=== PATIENT | female | born 2005 | race Caucasian/White ===

== ENCOUNTER 2025-02-20 13:52 | Outpatient (CLI) | payer BC, SELFPAY ==
--- NOTE | ~2025-02-20 | US_ITS ---
EXAMINATION: US pelvic complete INDICATION: Abnormal uterine bleeding Comparison:No prior studies for comparison. TECHNIQUE: Multiple transabdominal and endovaginal sonographic images of the pelvis performed. FINDINGS: The uterus measures 7.2 x 3.2 x 5.1 cm. The endometrial complex measures 1 cm. The right ovary measures 2.2 x 1.3 x 1.7 cm and the left ovary measures 3.1 x 3 x 2.6 cm. There are small follicles in each ovary. Normal doppler signal in both ovaries. There is no free fluid in the pelvis. There are no abnormal masses seen on either side. IMPRESSION: 1. Unremarkable pelvic ultrasound. Reviewed, dictated and finalized at location O. [employer]
== END 2025-02-20 13:53 | disposition home or self-care (01) ==
LOC: MICIMG 13:54
DX: N93.8 Other specified abnormal uterine and vaginal bleeding (principal)
CPT/HCPCS: 76856